=== PATIENT | male | born 1995 | race African-American/Black ===

== ENCOUNTER 2024-02-26 23:32 | Emergency (ER) | payer SELFPAY ==
[2024-02-26 23:40] VITALS: BP 146/98; PULSE 98; O2SAT 98
[2024-02-26 23:52] VITALS: BP 118/70; PULSE 75; RESP 18; TEMP 36.9; O2SAT 98
[2024-02-27 00:21] VITALS: BP 111/89; PULSE 71; RESP 18; TEMP 36.9; O2SAT 100; BMI 27.1
[2024-02-27 03:00] VITALS: BP 112/60; PULSE 66; RESP 18; TEMP 36.9; O2SAT 99
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
[2024-02-27 03:57] VITALS: BP 137/63; PULSE 75; RESP 18; TEMP 36.6; O2SAT 100
== END 2024-02-27 04:15 ==
PROVIDERS: Emergency Provider Emergency Medicine Emergency Medical Services
DX: I89.8 Other specified noninfective disorders of lymphatic vessels and lymph nodes (principal)
CPT/HCPCS: 99282; 99284